=== PATIENT | female | born 1960 | race Caucasian/White ===

== ENCOUNTER 2018-11-07 11:56 | Emergency (ER) | payer MEDICAID ==
[~2018-11-07] VITALS: Ht 162.6 cm; Wt 77.6 kg
[2018-11-07 11:56] VITALS: BP_SYST 106
--- NOTE | 2018-11-07 11:58 | NUR ---
Pt is here for c/o generalized facial, hand, and feet numbness for 2 weeks. Pt is noted to ambulate with steady gait. Speech is clear, hand coroner/medical examiner strong and even, no deficit or weakness noted. Pt's daughter is at bedside. Pt denied any pain. Pt has hx of DM, HTN, and high cholesterol. Pt is alert and oriented x4, respirations even and unlabored. Pt is placed on adult basic education instructor and continuous pulse ox.
--- NOTE | 2018-11-07 12:15 | NUR ---
Report given to Marti HERRERA for lunch break.
--- NOTE | 2018-11-07 12:20 | NUR ---
Accucheck 451. Dr. Silva notified.
--- NOTE | 2018-11-07 12:30 | NUR ---
ER at bedside examining patient.
--- NOTE | 2018-11-07 12:44 | NUR ---
Patient given written and verbal discharge instructions and verbalizes understanding. ER MD Silva discussed with patient the results and treatment provided. Patient in stable condition. ID arm band removed. Rx of Atarax given. Patient educated on pain management and to follow up with PMD. Pain Scale 0. Opportunity for questions provided and answered. Medication side effect fact sheet provided.
[2018-11-07 12:46] VITALS: BP_SYST 113
== END 2018-11-07 12:44 | disposition home or self-care (01) ==
LOC: SED 11:56
DX: F41.9 Anxiety disorder, unspecified (principal); E11.9 Type 2 diabetes mellitus without complications; I10 Essential (primary) hypertension; Z90.49 Acquired absence of other specified parts of digestive tract
CPT/HCPCS: 82962; 99283

== ENCOUNTER 2020-07-06 10:11 | Inpatient (IN) | payer MEDICAID ==
[~2020-07-06] VITALS: Ht 165.1 cm; Wt 88.5 kg
[2020-07-06 10:11] VITALS: BP_SYST 169
[~2020-07-06 10:11] MED LIST: AMLO2.5T50 PO; ASPI-1155 PO; ASPI-989 PO; BENA5TAB5 PO; BUME1TAB8 PO; CEPH250C PO; LIP40 PO
--- NOTE | 2020-07-06 10:23 | NUR ---
Patient to ER bed 04 to gown for evaluation. Side rails up.
--- NOTE | 2020-07-06 10:30 | NUR ---
ER DR. FRANCISCO AT THE BEDSIDE EXAMINING
--- NOTE | 2020-07-06 10:32 | NUR ---
PT BIBA FOR RIGHT SIDED LOWER BACK PAIN FROM HOME. REPORTS SHE FELL LAST WEEK AND HAS HAD INCREASING PAIN SINCE. DENIES KO AT THAT TIME. PT IS AAOX4, V/S STABLE UPON ARRIVAL
--- NOTE | 2020-07-06 10:40 | NUR ---
Patient transported to radiology via gurney, accompanied by staff.
[2020-07-06] MEDS ORDERED: MORPHINE 4 MG INJ. 4 MG/ML VIAL IVP ONE (11:00)
--- NOTE | 2020-07-06 11:00 | NUR ---
assumed care of pt. from Miladys HERRERA., pt currently sleeping post medication
[2020-07-06 11:08] LABS: BASOPHILS % (AUTO) 0.3 % (0.0-2.0); HEMATOCRIT 29.5 % (36-48); HEMOGLOBIN 9.6 g/dL (12.0-16.0); LYMPHOCYTES # (AUTO) 0.6 K/uL (1.0-5.5); LYMPHOCYTES % (AUTO) 12.6 % (20.5-51.5); MEAN CORPUSCULAR HEMOGLOBIN 28 pg (27-31); MEAN CORPUSCULAR HGB CONC 32 % (32-36); MEAN CORPUSCULAR VOLUME 87 fL (79.0-98.0); MONOCYTES # (AUTO) 0.2 K/uL (0.0-1.0); MONOCYTES % (AUTO) 4.8 % (1.7-9.3); NEUTROPHILS # (AUTO) 4.1 K/uL (1.8-7.7); NEUTROPHILS % (AUTO) 82.3 % (40.0-70.0); PLATELET COUNT (AUTO) 259 K/uL (130-430); RED BLOOD CELL COUNT(AUTO) 3.41 MIL/uL (4.2-6.2); RED CELL DISTRIBUTION WIDTH 17.2 % (9.0-15.0)
[2020-07-06 11:21] LABS: CALCIUM 7.3 mg/dL (8.4-11.0); CREATININE 3.48 mg/dL (0.55-1.30); POTASSIUM 5.2 mmol/L (3.5-5.1)
[2020-07-06 11:27] LABS: ALBUMIN 1.6 g/dL (3.4-4.8); TOTAL BILIRUBIN 0.4 mg/dL (0.0-1.0)
--- NOTE | 2020-07-06 13:44 | NUR ---
med. rec and pt belongings done
--- NOTE | 2020-07-06 14:30 | NUR ---
Admit orders received from Dr. Cedeno, pt to go to Med-surg, talked to charge nurse for bed assignment, pt will go to room 101B.
--- NOTE | 2020-07-06 14:47 | NUR ---
Patient will be admitted to care of Dr. Cedeno. Admitted to med-surg unit. Will go to room 101B. Belongings list completed. Complete and up to date summary report printed. SBAR report to be given at bedside with opportunity for questions.
[2020-07-06 15:54] LABS: BILIRUBIN,URINE NEGATIVE (NEGATIVE); BLOOD, URINE NEGATIVE (NEGATIVE); CLARITY/URINE SL CLOUDY (CLEAR); COLOR,URINE YELLOW (YELLOW); GLUCOSE,URINE 1+ (NEGATIVE); KETONES,URINE NEGATIVE (NEGATIVE); LEUKOCYTE ESTERASE ,URINE NEGATIVE (NEGATIVE); NITRITE, URINE NEGATIVE (NEGATIVE); PROTEIN URINE 3+ (NEGATIVE); UROBILINOGEN,URINE 0.2 (0.2-1.0)
--- NOTE | 2020-07-06 15:55 | NUR ---
ADMISSION NOTES: [facility]. SPEAKS FRENCH ONLY. RESPIRATION EVEN AND UNLABORED. ABDOMEN SOFT AND NON DISTENDED. OBESE. HUGE STOMACH. HAS ECCHYMOSES BOTH ARMS. PHOTOS TAKEN. HAS IV ACCESS ON THE RT THUMB #24. SALINE LOCK DRY/PATENT. ORIENTED WITH BED CALL LIGHTS WITHIN REACH. BED LOW POSITION, ALARMED AND LOCKED. INFORMED PATIENT TO CALL FOR ASSISTANCE. VITALS SIGNS TAKEN. AFEBRILE. NO PAIN NOR DISTRESS NOTED.
[2020-07-06 16:47] VITALS: BP_SYST 170
[2020-07-06] MEDS ORDERED: ACETAMINOPHEN 325 MG TABLET PO PRN (17:00)
[2020-07-06] MEDS ORDERED: MORPHINE 2 MG/ML INJ. SYRINGE IVP PRN (17:00)
[2020-07-06] MEDS ORDERED: METOCLOPRAMIDE HCL 10 MG/2 ML VIAL IVP PRN (17:00)
[2020-07-06] MEDS ORDERED: NACL 0.9% 1,000 ML IV SCH (17:00)
[2020-07-06] MEDS ORDERED: ONDANSETRON HCL 4 MG/2 ML VIAL IVP PRN (17:00)
--- NOTE | 2020-07-06 17:12 | NUR ---
RENAL CONSULT REASON FOR CONSULTATION:RENAL FAILURE WAS CONSULT CALLED?Y PERSON WHO WAS NOTIFIED:MARIA ESTHER CONSULTING PHYSICIAN:PEDRO PABLO LAIRD (ANNIA TOMLINSON MONEY POSITION OFFICER) PATCHING MACHINE OPERATOR SPECIALTY:NEPHROLOGY PATCHING MACHINE OPERATOR PHONE NUMBER:[phone] REQUESTING PHYSICIAN:RONAK GARRIDO
--- NOTE | 2020-07-06 17:19 | NUR ---
ON RENAL CONSULT AND WAS CALLED.
--- NOTE | 2020-07-06 18:45 | NUR ---
DR SANCHEZ NEPHRO CONSULT CAME AND MADE ORDERS. PLEASE FOLLOW UP.
--- NOTE | 2020-07-06 18:57 | NUR ---
REFUSED TO TAKE PHOTOS ON BOTH LEGS AND FEET. DISCOLORED BROWN COLOR. NO DRAINAGE/DRY AND INTACT. NOTED.
[2020-07-06] MEDS ORDERED: FUROSEMIDE 40 MG/4 ML VIAL IVP ONE (19:15)
[2020-07-06 21:00] VITALS: BP_SYST 152
[2020-07-06] MEDS: ALBUMIN HUMAN 25% 50 ML IV SCH (21:42)
--- NOTE | 2020-07-06 22:15 | NUR ---
FALL PRECAUTIONS implemented History of FALLS IS NOTED , patient awake alert comfort measures implemented .
[2020-07-07] VITALS (7 sets, daily range): BP systolic 141–155
--- NOTE | 2020-07-07 | NUR ---
ALBUMEN 25 % IVPB administer as ordered , patient awake procedures explained .
[2020-07-07] MEDS: ALBUMIN HUMAN 25% 50 ML IV SCH ×2 (00:15→02:37)
--- NOTE | 2020-07-07 04:59 | NUR ---
HOURLY ROUNDING patient Resting call youssef given to patient comfort measures implemented skin dry warm .
[2020-07-07 06:35] LABS: BASOPHILS % (AUTO) 0.4 % (0.0-2.0); EOSINOPHILS # (AUTO) 0.1 K/uL (0.0-0.4); EOSINOPHILS % (AUTO) 2.1 % (0.0-4.0); HEMATOCRIT 25.5 % (36-48); HEMOGLOBIN 8.3 g/dL (12.0-16.0); LYMPHOCYTES # (AUTO) 1.1 K/uL (1.0-5.5); LYMPHOCYTES % (AUTO) 17.9 % (20.5-51.5); MEAN CORPUSCULAR HEMOGLOBIN 29 pg (27-31); MEAN CORPUSCULAR HGB CONC 33 % (32-36); MEAN CORPUSCULAR VOLUME 88 fL (79.0-98.0); MONOCYTES # (AUTO) 0.4 K/uL (0.0-1.0); MONOCYTES % (AUTO) 7.5 % (1.7-9.3); NEUTROPHILS # (AUTO) 4.3 K/uL (1.8-7.7); NEUTROPHILS % (AUTO) 72.1 % (40.0-70.0); PLATELET COUNT (AUTO) 223 K/uL (130-430); RED CELL DISTRIBUTION WIDTH 17.2 % (9.0-15.0); WHITE BLOOD COUNT (AUTO) 5.9 K/uL (4.8-10.8)
[2020-07-07 06:45] LABS: ALBUMIN 1.8 g/dL (3.4-4.8); CREATININE 3.36 mg/dL (0.55-1.30); POTASSIUM 5.1 mmol/L (3.5-5.1); TOTAL BILIRUBIN 0.4 mg/dL (0.0-1.0)
--- NOTE | 2020-07-07 07:40 | NUR ---
OPENING NOTES: RECEIVED REPORT FROM CATTYMAN NURSE. PATIENT IS AWAKE LAYING DOWN IN BED. TOLERATED OXYGEN ON ROOM AIR WITH NO DISTRESS NOTED. IV LINE PATENT AND INTACT WITH NO INFILTRATION NOTED. PATIENT IN STABLE CONDITION. SAFETY, FALL, AND ASPIRATION PRECAUTIONS ARE IN PLACE. BED LOCKED IN LOWEST POSITION AND CALL LIGHT IN REACH. WILL CONTINUE TO MONITOR PATIENT
[2020-07-07] MEDS: ASPIRIN 81 MG TAB.CHEW PO SCH (09:05)
[2020-07-07] MEDS: amLODIPine BESYLATE 5 MG TABLET PO SCH (09:05)
[2020-07-07] MEDS: FUROSEMIDE 40 MG/4 ML VIAL IVP SCH ×2 (09:06→21:33)
[2020-07-07] MEDS: cefTRIAXone 1 GM in D5W 50 ML IV SCH (12:00)
[2020-07-07] MEDS: MORPHINE 4 MG INJ. 4 MG/ML VIAL IVP PRN ×2 (13:06→20:24)
--- NOTE | 2020-07-07 19:27 | NUR ---
CLOSING NOTES: PATIENT IS AWAKE LAYING DOWN IN BED. TOLERATED OXYGEN ON ROOM AIR WITH NO DISTRESS NOTED. IV LINE PATENT AND INTACT WITH NO INFILTRATION NOTED. PATIENT IN STABLE CONDITION. SAFETY, FALL, AND ASPIRATION PRECAUTIONS REMAINED IN PLACE. BED LOCKED IN LOWEST POSITION AND CALL LIGHT IN REACH. WILL ENDORSE PATIENT CARE TO ONCOMING SEGMENT PRODUCER NURSE.
--- NOTE | 2020-07-07 19:50 | NUR ---
PAGED I PAGED DR. RYDER I SPOKE WITH DARCY EXCHANGE
--- NOTE | 2020-07-07 20:00 | NUR ---
INITIAL NOTES: PT IS ALERT AND ORIENTED ; FRENCH SPEAKING ; STATED SHE HAS MILD SOB , SAT 90% ON ROOM AIR AT THIS TIME ; VITALS ARE STABLE ; ASSESSMENT DONE ; PT C/O PAIN TO THE RIGHT BACK WHILE MOVING , NOTICED REDNESS /PURPLE DISCOLORATION TO MIDBACK AND RIGHT SIDE ; IV ON THE LEFT THUMB SL , NO S/S OF ANY INFILTRATION NOTICED ; BED IN LOW AND LOCK POSITION , CALL GAGNON IN REACH ; BED ALARM IS ON ; ENCOURAGED PT TO CALL FOR HELP .
--- NOTE | 2020-07-07 20:25 | NUR ---
O2; NOTICED THAT PTS O2 SAT IS DROPPING 86-88% , PLACED PT ON O2 2L NC ; SAT IS ABOVE 95% ; WILL CONTINUE TO MONITOR PT .
--- NOTE | 2020-07-07 20:30 | NUR ---
CALLED BACK: DR YEPEZ WHO IS NOTCHED BLADE LOADER FOR DR RYDER CALLED BACK , NOTIFIED MD THAT PT IS MILDLY SOB AND PLACED PT ON O2 2L NC , NO ORDERS RECEIVED , ALSO NOTIFIED MD THAT PT HAS H/O DM AND NO ORDERED FOR ACCU CHECK MD ORDERED ACCU CHECK [facility] , WITH REGULAR INSULIN COVERAGE ; ORDER ENTERED .
--- NOTE | 2020-07-07 22:25 | NUR ---
ON 2L O2 PT IS SATING ABOVE 96% , TRIED TO WEAN PT OFF FROM O2 , NOTICED THAT PT DESATS ON ROOM AIR , PLACED PT ON 1 L NC . SAT 95% AND ABOVE
--- NOTE | 2020-07-08 | NUR ---
RN NOTES: PT IS SLEEPING , EASILY AROUSABLE ; NOT IN ANY ACUTE DISTRESS; NO C/O ANY PAIN ; VITALS ARE STABLE ; WILL CONITNUE TO MONITOR PT .
[2020-07-08 01:25] VITALS: BP_SYST 136
--- NOTE | 2020-07-08 03:30 | NUR ---
RN NOTES: PT IS SLEEPING , EASILY AROUSABLE ; OFFERED SUGAR FREE JELLO , PT ONLY TOOK FEW SPOONS AND FEW SIPS OF WATER . PT STATED SHE IS VERY TIRED AND SLEEPY , NO C/O ANY PAIN AT THIS TIME.
--- NOTE | 2020-07-08 06:06 | NUR ---
RN NOTES: BS 75, PROVIDED CRACKERS TO THE PT , PT DENIES ANY PAIN AT THIS TIME ; WILL CONTINUE TO MONITOR PT
--- NOTE | 2020-07-08 07:17 | NUR ---
CLOSING NOTES: REPORT GIVEN TO RN AT BEDSIDE , PT IS SLEEPING , NO S/S OF ANY ACUTE DISTRESS NOTICED ; ALL NEEDS ATTENDED ; PT IS STILL ON O2 1 L NC .
--- NOTE | 2020-07-08 07:45 | NUR ---
OPENING NOTES: RECEIVED REPORT FROM OBIEE CONSULTANT NURSE. PATIENT IS AWAKE LAYING DOWN IN BED. TOLERATED ON 1L NASAL CANNULA WITH NO DISTRESS NOTED. IV LINE PATENT AND INTACT WITH NO INFILTRATION NOTED. PATIENT IN STABLE CONDITION. SAFETY, FALL, AND ASPIRATION PRECAUTIONS ARE IN PLACE. BED LOCKED IN LOWEST POSITION AND CALL LIGHT IN REACH. WILL CONTINUE TO MONITOR PATIENT.
--- NOTE | 2020-07-08 07:53 | NUR ---
Nutrition Update Murali Scale 16 noted. Pt admitted for Back pain Diet: Regular BMI: 33.1 kg/m2 RD to follow per nutrition care standards.
[2020-07-08 08:00] VITALS: BP_SYST 138
[2020-07-08] MEDS: ASPIRIN 81 MG TAB.CHEW PO SCH (08:13)
[2020-07-08] MEDS: FUROSEMIDE 40 MG/4 ML VIAL IVP SCH ×2 (08:13→22:25)
[2020-07-08] MEDS: amLODIPine BESYLATE 5 MG TABLET PO SCH (08:14)
--- NOTE | 2020-07-08 10:40 | NUR ---
CLARIFIED DIET ORDER TO DR. REZVANI. BOCANEGRA MENTIONED THAT IT IS OK FOR PATIENT TO HAVE REGULAR DIET.
[2020-07-08] MEDS ORDERED: ATORVASTATIN 20 MG TABLET PO ONE (11:00)
[2020-07-08 11:30] VITALS: BP_SYST 149
[2020-07-08] MEDS: cefTRIAXone 1 GM in D5W 50 ML IV SCH (12:59)
--- NOTE | 2020-07-08 13:15 | NUR ---
REPORT GIVEN TO KAILA (SHARON) USING SBAR REPORT.
--- NOTE | 2020-07-08 13:30 | NUR ---
ASSUMED CARE: PATIENT IN THE ROOM. RESTING. CALL LIGHT WITH IN REACH. BED LOCKED AT LOWEST POSITION. NO DISTRESS.
[2020-07-08 15:18] VITALS: BP_SYST 152
--- NOTE | 2020-07-08 18:30 | NUR ---
CLOSING NOTES: PATIENT RESTING THIS TIME. CALL LIGHT WITH IN REACH. BED LOCKED AT LOWEST POSITION. SAFETY MEASURES RENDERED.CONTINUE TO MONITOR.STABLE.
[2020-07-08] MEDS: MORPHINE 4 MG INJ. 4 MG/ML VIAL IVP PRN (19:02)
[2020-07-08 20:00] VITALS: BP_SYST 144
[2020-07-08] MEDS: ATORVASTATIN 20 MG TABLET PO SCH (22:21)
--- NOTE | 2020-07-08 22:21 | NUR ---
ACCUCHECK 97 AND SKIN REMAINS WARM AND DRY TO TOUCH. PT DECLINED HS SNACKS.
--- NOTE | 2020-07-09 06:22 | NUR ---
ACCUCHECK 77 AND SKIN REMAINS WARM AND DRY TO TOUCH.
[2020-07-09 08:00] VITALS: BP_SYST 150
--- NOTE | 2020-07-09 08:00 | NUR ---
OPENING NOTES: RECEIVED FROM THE YARD SUPERVISOR COTTON GIN RN. PATIENT EATING BREAKFAST. BREATHING EVEN AND NON LABORED TO O2 AT 1 L/MIN. IV PATENT WITH NO SIGNS OF INFILTRATION. FALL AND SAFETY PRECAUTION REINFORCED. BED LOCKED, ALARM ON AND IN LOWEST POSITION. CALL LIGHT WITHIN REACH.
[2020-07-09] MEDS: ATORVASTATIN 20 MG TABLET PO SCH ×2 (09:45→21:03)
[2020-07-09] MEDS: ASPIRIN 81 MG TAB.CHEW PO SCH (09:46)
[2020-07-09] MEDS: amLODIPine BESYLATE 5 MG TABLET PO SCH (09:46)
[2020-07-09] MEDS: FUROSEMIDE 40 MG/4 ML VIAL IVP SCH ×3 (09:47→21:04)
[2020-07-09] MEDS ORDERED: GLUCOSE (DEXTROSE) ORAL GEL -Adults PO PRN (10:45)
[2020-07-09] MEDS ORDERED: DEXTROSE 50%-WATER 50 ML DISP.SYRIN IVP PRN (10:45)
[2020-07-09] MEDS ORDERED: D5W 1,000 ML IV PRN (10:45)
[2020-07-09] MEDS: cefTRIAXone 1 GM in D5W 50 ML IV SCH (11:56)
[2020-07-09 12:02] VITALS: BP_SYST 162
[2020-07-09 17:00] VITALS: BP_SYST 176
--- NOTE | 2020-07-09 19:05 | NUR ---
CLOSING NOTES: PATIENT RESTING IN BED. BREATHING EVEN AND NON LABORED TO O2 AT 1 L/MIN. CALL LIGHT WITH IN REACH. BED LOCKED AT LOWEST POSITION. SAFETY AND FALL PRECAUTION REINFORCED.
--- NOTE | 2020-07-09 19:30 | NUR ---
Opening Note Received report. Patient laying in bed with no signs of distress. Breathing even and unlabored on RA. IV patent with no signs of infiltration. Bed in low position. Safety measures in place. Pt repositioned to comfort. Addendum: 07/10/20 at 0222 by Jennie Mckeon RN Discussed plan of care with pt. Pt verbalized understanding.
[2020-07-09 20:00] VITALS: BP_SYST 148
--- NOTE | 2020-07-09 21:18 | NUR ---
Spoke with Kelley WALLACE from [employer] inquired status on patient discharge planning. updated CM and she stated that patient is already accepted to outpatient services with Dr. Pedroza.
[2020-07-10 04:24] VITALS: BP_SYST 145
[2020-07-10 05:47] LABS: BASOPHILS # (AUTO) 0.1 K/uL (0.0-0.2); BASOPHILS % (AUTO) 1.2 % (0.0-2.0); EOSINOPHILS # (AUTO) 0.2 K/uL (0.0-0.4); HEMATOCRIT 26.8 % (36-48); HEMOGLOBIN 8.6 g/dL (12.0-16.0); LYMPHOCYTES # (AUTO) 1.1 K/uL (1.0-5.5); LYMPHOCYTES % (AUTO) 23.4 % (20.5-51.5); MEAN CORPUSCULAR HEMOGLOBIN 28 pg (27-31); MEAN CORPUSCULAR HGB CONC 32 % (32-36); MEAN CORPUSCULAR VOLUME 88 fL (79.0-98.0); MONOCYTES # (AUTO) 0.3 K/uL (0.0-1.0); MONOCYTES % (AUTO) 7.4 % (1.7-9.3); NEUTROPHILS # (AUTO) 2.9 K/uL (1.8-7.7); PLATELET COUNT (AUTO) 224 K/uL (130-430); RED BLOOD CELL COUNT(AUTO) 3.04 MIL/uL (4.2-6.2); RED CELL DISTRIBUTION WIDTH 17.1 % (9.0-15.0); WHITE BLOOD COUNT (AUTO) 4.6 K/uL (4.8-10.8)
[2020-07-10 06:15] LABS: ALBUMIN 1.4 g/dL (3.4-4.8); CALCIUM 7.1 mg/dL (8.4-11.0); CREATININE 3.5 mg/dL (0.55-1.30); TOTAL BILIRUBIN 0.2 mg/dL (0.0-1.0)
--- NOTE | 2020-07-10 07:00 | NUR ---
CLOSING NOTE Pt resting in bed. No signs of distress at this time. Respirations even and unlabored on RA. Accucheck taken with BS 85. No insulin needed per sliding scale. Encouraged pt to eat breakfast. Pt verbalizes understanding. All needs are met at this time. Bed in low position. Call light within reach of pt. Safety precautions in place. Will endorse care to dayshift RN.
--- NOTE | 2020-07-10 07:45 | NUR ---
ASSUMPTION OF CARE: RECEIVED PT A/A/OX4, DX: RISK FOR INJURY, R/T S/P FALLS, AFEBRILE, VSS, BREATH SOUNDS ARE CLEAR, BREATHING UNLABORED, IV SITE INTACT, PATENT, NO REDNESS OR SWELLING, ORIENTED TO UNIT CALL LIGHT PLACED WITHIN REACH, WILL CONT' TO MONITOR AND ASSESS.
[2020-07-10 08:00] VITALS: BP_SYST 127
--- NOTE | 2020-07-10 09:00 | NUR ---
EDUCATION SPECIALIST: MORNING MEDS GIVEN, PER ORDERED BY Eleonora, TOLERATED WELL, WILL CONT' TO MONITOR AND ASSESS.
[2020-07-10] MEDS: ASPIRIN 81 MG TAB.CHEW PO SCH (09:02)
[2020-07-10] MEDS: ATORVASTATIN 20 MG TABLET PO SCH ×2 (09:02→20:04)
[2020-07-10] MEDS: amLODIPine BESYLATE 5 MG TABLET PO SCH (09:03)
[2020-07-10] MEDS: FUROSEMIDE 40 MG/4 ML VIAL IVP SCH ×3 (09:03→20:04)
--- NOTE | 2020-07-10 11:30 | NUR ---
GLUCOSE MONITORING: BLOOD SUGAR [id number], NO COVERAGE REQUIRED, CONDITION STABLE, WILL CONT' WITH POC.
[2020-07-10 11:33] VITALS: BP_SYST 144
[2020-07-10] MEDS ORDERED: FURO-149 PO (12:15)
[2020-07-10] MEDS ORDERED: LEVO250T58 PO (12:17)
--- NOTE | 2020-07-10 14:00 | NUR ---
NURSES NOTES: PT REMAINS STABLE, NO S/S OF DISTRESS, NEEDS MET, VSS, CALL LIGHT PLACED WITHIN REACH, WILL CONT' TO MONITOR AND ASSESS.
[2020-07-10 15:40] VITALS: BP_SYST 148
[2020-07-10] MEDS: cefTRIAXone 1 GM in D5W 50 ML IV SCH (16:08)
--- NOTE | 2020-07-10 16:20 | NUR ---
Note Received report from previous RN for continuation of care. Pt stable and IV antibiotics infusing through left thumb IV site. Introduced myself to pt. Agree with am assessment done at 09am today. Call light within reach. Pt denies any needs at this time.
--- NOTE | 2020-07-10 18:45 | NUR ---
Note Pt sitting up in bed to eat her dinner. No SOB/resp distress or pain/discomfort noted all shift. Pt was checked on q1' and PRN all shift. IV in left thumb intact and patent. Pt was maintained with safety precautions all shift. Call light within reach. Pt's bed in low position and bed alarm on all shift.
--- NOTE | 2020-07-10 19:15 | NUR ---
OPENING NOTE REPORT RECEIVED FROM DAYSHIFT NURSE. PATIENT RECEIVED LYING IN BED, RESTING. NO S/S OF ACUTE DISTRESS NOTED. BREATHING EVEN AND UNLABORED. HOB RAISED. IV SITE PATENT, NO SIGNS OF INFILTRATION OR INFECTION NOTED. SKIN WARM AND DRY TO TOUCH. NO S/S OF HYPOGLYCEMIA NOTED. CALL LIGHT WITH PATIENT. BED ALARM ON. BED LOCKED AND AT LOWEST POSITION. WILL CONTINUE TO MONITOR.
[2020-07-10] MEDS: MORPHINE 4 MG INJ. 4 MG/ML VIAL IVP PRN (19:22)
[2020-07-10 20:00] VITALS: BP_SYST 158
[2020-07-10] MEDS: INSULIN REGULAR, HUMAN 100 UNITS/ML, 10 ML VIAL (humuLIN R) SUBCUT PRN (20:05)
[2020-07-11 00:38] VITALS: BP_SYST 156
--- NOTE | 2020-07-11 06:49 | NUR ---
CLOSING NOTE PATIENT IN BED, RESTING, NO S/S OF ACUTE DISTRESS NOTED. BREATHING EVEN AND UNLABORED. HOB RAISED. IV SITE PATENT, NO SIGNS OF INFILTRATION OR INFECTION NOTED. SKIN WARM AND DRY TO TOUCH, NO SIGNS OF HYPOGLYCEMIA NOTED. ALL NEEDS MET THROUGHOUT SHIFT. FALL, SAFETY PRECAUTIONS MAINTAINED THROUGHOUT SHIFT. WILL CONTINUE TO MONITOR UNTIL PATIENT CARE IS ENDORSED TO ONCOMING DAYSHIFT NURSE.
[2020-07-11 08:08] VITALS: BP_SYST 159
[2020-07-11] MEDS: ASPIRIN 81 MG TAB.CHEW PO SCH (09:25)
[2020-07-11] MEDS: ATORVASTATIN 20 MG TABLET PO SCH ×2 (09:25→20:40)
[2020-07-11] MEDS: FUROSEMIDE 40 MG/4 ML VIAL IVP SCH ×3 (09:26→20:42)
[2020-07-11] MEDS: amLODIPine BESYLATE 5 MG TABLET PO SCH (09:28)
[2020-07-11 13:37] VITALS: BP_SYST 158
[2020-07-11] MEDS: cefTRIAXone 1 GM in D5W 50 ML IV SCH (14:41)
[2020-07-11] MEDS: INSULIN REGULAR, HUMAN 100 UNITS/ML, 10 ML VIAL (humuLIN R) SUBCUT PRN (17:32)
[2020-07-11 18:41] VITALS: BP_SYST 149
--- NOTE | 2020-07-11 19:30 | NUR ---
OPENING NOTE REPORT RECEIVED FROM DAYSHIFT NURSE. PATIENT RECEIVED LYING IN BED, RESTING. NO S/S OF ACUTE DISTRESS NOTED. BREATHING EVEN AND UNLABORED ON ROOM AIR. HOB RAISED. IV SITE TO LEFT THUMB PATENT, NO SIGNS OF INFILTRATION NOTED. CALL LIGHT WITH PATIENT. BED ALARM ON. BED LOCKED AND AT LOWEST POSITION. WILL CONTINUE TO MONITOR.
[2020-07-11 20:00] VITALS: BP_SYST 152
--- NOTE | 2020-07-11 21:20 | NUR ---
RN ROUNDS PT TOLERATED MEDICATIONS. VITAL SIGNS STABLE. NO S/S OF DISTRESS AT THIS TIME. PT DENIES PAIN AT THIS TIME.
[2020-07-11] MEDS: MORPHINE 4 MG INJ. 4 MG/ML VIAL IVP PRN (21:57)
--- NOTE | 2020-07-11 22:00 | NUR ---
PAIN MED GIVEN PT CALLED REPORTING PAIN. WILL MEDICATE. WILL REASSESS.
[2020-07-12] VITALS: BP_SYST 153
--- NOTE | 2020-07-12 | NUR ---
RN ROUNDS PT VITAL SIGNS STABLE. NO S/S OF ANY DISTRESS. SLEEPING , BREATHING ON ROOM AIR.
--- NOTE | 2020-07-12 | NUR ---
RN ROUNDS PT VITAL SIGNS STABLE. PT SLEEPING AT THIS TIME. WILL CTM.
--- NOTE | 2020-07-12 04:31 | NUR ---
RN ROUNDS PT IS STABLE. NO S/S OF ANY DISTRESS AT THIS TIME. WILL CTM.
[2020-07-12 06:16] LABS: BASOPHILS # (AUTO) 0.1 K/uL (0.0-0.2); EOSINOPHILS # (AUTO) 0.2 K/uL (0.0-0.4); EOSINOPHILS % (AUTO) 2.7 % (0.0-4.0); HEMATOCRIT 28.2 % (36-48); LYMPHOCYTES # (AUTO) 1.4 K/uL (1.0-5.5); LYMPHOCYTES % (AUTO) 21.1 % (20.5-51.5); MEAN CORPUSCULAR HEMOGLOBIN 28 pg (27-31); MEAN CORPUSCULAR HGB CONC 32 % (32-36); MEAN CORPUSCULAR VOLUME 89 fL (79.0-98.0); MONOCYTES # (AUTO) 0.4 K/uL (0.0-1.0); MONOCYTES % (AUTO) 6.5 % (1.7-9.3); NEUTROPHILS # (AUTO) 4.6 K/uL (1.8-7.7); NEUTROPHILS % (AUTO) 68.7 % (40.0-70.0); PLATELET COUNT (AUTO) 230 K/uL (130-430); RED BLOOD CELL COUNT(AUTO) 3.19 MIL/uL (4.2-6.2); RED CELL DISTRIBUTION WIDTH 17.8 % (9.0-15.0); WHITE BLOOD COUNT (AUTO) 6.7 K/uL (4.8-10.8)
--- NOTE | 2020-07-12 07:07 | NUR ---
CLOSING NOTE PATIENT LYING IN BED, RESTING. NO S/S OF ACUTE DISTRESS NOTED. BREATHING EVEN AND UNLABORED ON ROOM AIR. HOB RAISED. IV SITE TO LEFT THUMB PATENT, NO SIGNS OF INFILTRATION NOTED. CALL LIGHT WITH PATIENT. BED ALARM ON. BED LOCKED AND AT LOWEST POSITION. WILL CONTINUE TO MONITOR.
--- NOTE | 2020-07-12 08:00 | NUR ---
OPENING NOTES: PATIENT AAOX 4. FRISIAN SPEAKING. RESPIRATION EVEN AND UNLABORED. ABDOMEN SOFT AND NON DISTENDED. BOTH ARMS ARE EDEMATOUS/SWOLLEN AND SCATTERED ECCHYMOSES NOTED. NO DRAINAGE NOTED NOR ODOR NOTED. VITALS SIGNS STABLE. AFEBRILE. BED LOW POSITION, ALARMED AND LOCKED. WILL CONTINUE TO MONITOR PATIENTS STATUS.
[2020-07-12 08:36] LABS: CALCIUM 7.2 mg/dL (8.4-11.0); CREATININE 3.33 mg/dL (0.55-1.30); POTASSIUM 4.8 mmol/L (3.5-5.1)
[2020-07-12 08:44] VITALS: BP_SYST 149
[2020-07-12] MEDS: ATORVASTATIN 20 MG TABLET PO SCH ×2 (08:53→20:20)
[2020-07-12] MEDS: FUROSEMIDE 40 MG/4 ML VIAL IVP SCH ×2 (08:53→15:00)
[2020-07-12] MEDS: amLODIPine BESYLATE 5 MG TABLET PO SCH (08:54)
[2020-07-12] MEDS: ASPIRIN 81 MG TAB.CHEW PO SCH (08:54)
--- NOTE | 2020-07-12 10:00 | NUR ---
DR RYDER CAME AND SEE THE PATIENT WITH ORDERS OF ULTRASOUND GUIDED THORACENTESIS RIGHT SIDE AND CONSENT SIGNED. RADIOLOGY CALLED AND IT WILL BE DONE TOMORROW AND PER DR RYDER AFTER THE THORACENTES PATIENT CAN GO HOME.
[2020-07-12 12:00] VITALS: BP_SYST 169
[2020-07-12] MEDS: cefTRIAXone 1 GM in D5W 50 ML IV SCH (12:00)
[2020-07-12 12:07] LABS: PROTHROMBIN TIME 10.2 SECS (9.5-12.5)
--- NOTE | 2020-07-12 14:56 | NUR ---
AWAITING FOR THE PICC LINE NURSE TO DO THE IV ACCESS.
--- NOTE | 2020-07-12 15:42 | NUR ---
STILL AWAITING FOR THE PICC LINE NURSE TO COME.
[2020-07-12 16:00] VITALS: BP_SYST 148
--- NOTE | 2020-07-12 19:30 | NUR ---
OPENING NOTE REPORT RECEIVED FROM DAYSHIFT NURSE. PATIENT RECEIVED LYING IN BED, RESTING. NO S/S OF ACUTE DISTRESS NOTED. BREATHING EVEN AND UNLABORED ON ROOM AIR. HOB RAISED. NO IV SITE AT THIS TIME. CALL LIGHT WITH PATIENT. BED ALARM ON. BED LOCKED AND AT LOWEST POSITION. WILL CONTINUE TO MONITOR.
[2020-07-12 20:00] VITALS: BP_SYST 155
[2020-07-12] MEDS ORDERED: levoFLOXacin 250 MG TABLET ONE (20:07)
[2020-07-12] MEDS: FUROSEMIDE 40 MG TABLET PO SCH (20:19)
[2020-07-12] MEDS: levoFLOXacin 250 MG TABLET PO SCH (20:19)
--- NOTE | 2020-07-12 21:05 | NUR ---
RN ROUNDS PT VITAL SIGNS STABLE. PT TOLERATED MEDICATIONS. NO PAIN AT THIS TIME. WILL CONTINUE TO MONITOR.
--- NOTE | 2020-07-13 01:30 | NUR ---
PAIN MED GIVEN PO ROUTE. PT COMPLAINS OF PAIN IN HER RIGHT SIDE OF BACK.
[2020-07-13 01:45] VITALS: BP_SYST 151
--- NOTE | 2020-07-13 04:00 | NUR ---
RN ROUNDS PT WOKE UP CRYING. PT DENIES PAIN AT THIS TIME. PT REQUESTED TO BE SITTING UP FOR HALF AN HOUR. PT SITTING UP IN BED. PT THEN CALMED DOWN. WILL CONTINUE TO MONITOR.
--- NOTE | 2020-07-13 05:44 | NUR ---
RN ROUNDS PT CLEANSED AND REPOSITIONED.
--- NOTE | 2020-07-13 06:48 | NUR ---
CLOSING NOTE PATIENT IS RESTING IN BED. NO S/S OF ACUTE DISTRESS NOTED. BREATHING EVEN AND UNLABORED ON ROOM AIR. HOB RAISED. NO IV SITE AT THIS TIME. CALL LIGHT WITH PATIENT. BED ALARM ON. BED LOCKED AND AT LOWEST POSITION. WILL CONTINUE TO MONITOR UNTIL CARE ENDORSED TO DAYSHIFT RN.
--- NOTE | 2020-07-13 07:15 | NUR ---
opening note Received sbar from Night Rn, patient in bed, respirations even, non labored, bed in low and locked position, call light within reach, bed alarm on,
[2020-07-13 08:00] VITALS: BP_SYST 150
--- NOTE | 2020-07-13 08:00 | NUR ---
nurse note patient in bed, respirations even, non labore, bed in low and locked position, call light within reach, bed alarm on. patient denies any pain or discomfort
[2020-07-13] MEDS: ASPIRIN 81 MG TAB.CHEW PO SCH (08:29)
[2020-07-13] MEDS: FUROSEMIDE 40 MG TABLET PO SCH (08:30)
[2020-07-13] MEDS: levoFLOXacin 250 MG TABLET PO SCH (08:30)
[2020-07-13] MEDS: amLODIPine BESYLATE 5 MG TABLET PO SCH (08:30)
[2020-07-13] MEDS: ATORVASTATIN 20 MG TABLET PO SCH (08:31)
--- NOTE | 2020-07-13 11:31 | NUR ---
Dietitian Recommendations *[facility] *Encourage PO intake. Please see Nutritional Assessment for details. ROBYN, APRIL
--- NOTE | 2020-07-13 11:57 | NUR ---
nurse note obtained bs, patient alert oriented, able to communicate, provided oj for decreased bs. patient tolerated well
[2020-07-13 12:00] VITALS: BP_SYST 132
--- NOTE | 2020-07-13 12:31 | NUR ---
nurse note patient incontinent of bladder, provided concepcion care, changed linens, repositioned patient patient denies any pain or discomfort
[2020-07-13 13:57] VITALS: BP_SYST 144
--- NOTE | 2020-07-13 14:44 | NUR ---
D/C Patient Patient given medication reconciliation form and D/C instructions. Exit Care provided. Patient verbalized understanding. MD discussed with patient the results and treatment provided. Patient in stable condition, ID band removed. Patient educated on pain management. All belongings will be sent with patient. Awaiting family for pickup
--- NOTE | 2020-07-13 15:00 | NUR ---
discharge patient taken to parking lot via wheelchair, to awaiting car
== END 2020-07-13 15:00 | disposition home or self-care (01) | DRG 144 ==
LOC: SED 10:11 → SMU 14:29
PROVIDERS: ADMIT Internal Medicine Hospice and Palliative Medicine; ATTEND Internal Medicine Hospice and Palliative Medicine
PROC: 0W993ZZ Drainage of Right Pleural Cavity, Percutaneous Approach (ICD-10-PCS; principal; 2020-07-13)
PROC: 02HV33Z Insertion of Infusion Device into Superior Vena Cava, Percutaneous Approach (ICD-10-PCS; 2020-07-13)
DX: S22.39XA Fracture of one rib, unspecified side, initial encounter for closed fracture (principal); N17.0 Acute kidney failure with tubular necrosis; E43 Unspecified severe protein-calorie malnutrition; I13.2 Hypertensive heart and chronic kidney disease with heart failure and with stage 5 chronic kidney disease, or end stage renal disease; E11.21 Type 2 diabetes mellitus with diabetic nephropathy; E86.1 Hypovolemia; J91.8 Pleural effusion in other conditions classified elsewhere; N18.5 Chronic kidney disease, stage 5; I13.0 Hypertensive heart and chronic kidney disease with heart failure and stage 1 through stage 4 chronic kidney disease, or unspecified chronic kidney disease; I50.9 Heart failure, unspecified; E11.22 Type 2 diabetes mellitus with diabetic chronic kidney disease; W01.0XXA Fall on same level from slipping, tripping and stumbling without subsequent striking against object, initial encounter; Z20.822 Contact with and (suspected) exposure to COVID-19; E78.5 Hyperlipidemia, unspecified; Z79.82 Long term (current) use of aspirin; Z79.899 Other long term (current) drug therapy; Z90.49 Acquired absence of other specified parts of digestive tract; Z74.01 Bed confinement status; Y92.009 Unspecified place in unspecified non-institutional (private) residence as the place of occurrence of the external cause; Y93.89 Activity, other specified; Y99.8 Other external cause status
CPT/HCPCS: 32555; 36415; 70450-TC; 71045; 71250-TC; 76376; 80048; 80053; 81003; 82962; 85025; 85610-TC; 85730-TC; 87040-TC; 87081; 93005; 96361; 96374; 96375; 97110-GP; 97116-GP; 97530-GP; 99285; C1729; J0696; J1815; J1940; J2270; J2405; J7030; J7060; P9046